=== PATIENT | male | born 1980 | race Caucasian/White ===

== ENCOUNTER 2021-05-07 05:50 | Emergency (ER) | payer BC ==
[2021-05-07 06:21] VITALS: BP 116/62; PULSE 110; RESP 16; TEMP 98.3
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
[2021-05-07] MEDS ORDERED: ACET/COD 300 MG/30 MG STARTER PACK 6 TAB BTL PO STA (07:01)
== END 2021-05-07 07:16 | disposition home or self-care (01) ==
LOC: EC 05:50
DX: S82.831A Other fracture of upper and lower end of right fibula, initial encounter for closed fracture (principal); S93.04XA Dislocation of right ankle joint, initial encounter; W01.0XXA Fall on same level from slipping, tripping and stumbling without subsequent striking against object, initial encounter
CPT/HCPCS: 99283

== ENCOUNTER 2021-05-08 22:46 | Observation (INO) | payer BC ==
--- NOTE | 2021-05-08 23:16 | XR ---
EXAMINATION TYPE: XR ankle complete RT DATE OF EXAM: 05/08/2021 COMPARISON: NONE HISTORY: Pain TECHNIQUE: 3 views FINDINGS: 3 views are obtained through the cast and there is oblique fracture distal fibula. There is lateral dislocation of the talus. There is displacement 13 mm laterally. The talus and calcaneus leelee ear intact. IMPRESSION: There is a lateral dislocation of the talus which is a change compared to exam yesterday.
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
[2021-05-09] MEDS ORDERED: PROPOFOL 10 MG/ML 20 ML VIAL IV STA (00:02)
[2021-05-09] MEDS ORDERED: SODIUM CHLORIDE 0.9% 500 ML 500 ML IV STA (00:02)
[2021-05-09] MEDS ORDERED: NALOXONE 0.4 MG/ML 1 ML VIAL IV PRN (00:03)
[2021-05-09] MEDS ORDERED: PROPOFOL 10 MG/ML 20 ML VIAL IV ONE (00:30)
--- NOTE | 2021-05-09 01:24 | XR ---
EXAMINATION TYPE: XR ankle limited RT DATE OF EXAM: 05/09/2021 COMPARISON: Today HISTORY: Postreduction TECHNIQUE: 2 views were obtained through the cast. FINDINGS: There is lateral displacement of the talus. Displacement is approximately 12 mm. There is oblique fr acture distal fibula. The talus and calcaneus appear intact. IMPRESSION: There is persistent significant lateral displacement of the talus and not significantly i mproved compared to the exam 2 hours ago.
[2021-05-09] MEDS: MORPHINE SULFATE 4 MG/ML SYRINGE IVP PRN ×2 (08:09→12:20)
[2021-05-09 08:24] VITALS: BP 115/68; PULSE 77; RESP 15; TEMP 98
[2021-05-09] MEDS ORDERED: LIDOCAINE 2% INJ 20 MG/ML (20 ML MDV) SQ STA (09:23)
[2021-05-09] MEDS: HYDROcodone/APAP 5-325MG 1 EACH TAB PO PRN ×2 (10:27→16:43)
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
--- NOTE | 2021-05-09 13:00 | XR ---
EXAMINATION TYPE: XR ankle limited RT DATE OF EXAM: 05/09/2021 COMPARISON: NONE HISTORY: Post reduction right ankle TECHNIQUE: 2 postreduction views of the right ankle COMPARISON: None. FINDINGS: There is persistent but improved disruption of the ankle mortise. Medial tibiotalar joint s pace widening is at 7 mm versus 13 mm previously. Slight improvement in displacement of distal fibula r fracture. IMPRESSION: As above
--- NOTE | 2021-05-09 13:07 | P.DS ---
Providers Date of admission: 05/09/21 00:03 Expected date of discharge: 05/09/21 Attending physician: Chaz Hanna Primary care physician: Stated None - Discharge Diagnosis(es) (1) Closed fracture of right distal fibula Current Visit: Yes Status: Acute (2) Dislocation of right ankle joint Current Visit: Yes Status: Acute Hospital Course: This is a 40-year-old male who had an initial injury of the right ankle when he slipped on some ice on 05/07/2021. He was seen in the emergency department and had a reduction of his fracture dislocation of the ankle. He was placed in a short leg splint. He returned to the emergency department last evening with complaint of increased pain and the feeling that the "bones were moving". He was admitted for pain management and further evaluation with orthopedics. The ankle was reduced on the floor by myself using 10 mL of lidocaine as an ankle block. Postreduction films showed improved position. The patient may be discharged to home with follow-up on with Dr. Hanna to discuss surgical plan. Patient Condition at Discharge: Stable Plan - Discharge Summary New Discharge Prescriptions: New HYDROcodone/APAP 7.5-325MG [[place] 7.5-325] 1 - 2 tab PO Q6HR PRN #32 tab PRN Reason: Pain Discharge Medication List HYDROcodone/APAP 7.5-325MG [[place]ou[place] 7.5-325] 1 - 2 tab PO Q6HR PRN #32 tab 05/09/21 [Rx] Follow up Appointment(s)/Referral(s): None,Stated [Primary Care Provider] - 1-2 days Chaz Hanna MD [STAFF PHYSICIAN] - 3 Days Activity/Diet/Wound Care/Special Instructions: Strict nonweightbearing right lower extremity with crutches. Strict elevation. Patient should be supine with leg elevated unless up to the bathroom. Follow-up on , 05/12/[address] Hanna. Discharge Disposition: HOME SELF-CARE
== END 2021-05-09 17:13 | disposition home or self-care (01) ==
LOC: EC 22:46 → 6NMEDSUR 05-09 00:03
PROVIDERS: ADMIT Orthopaedic Surgery; ATTEND Orthopaedic Surgery
DX: S93.04XA Dislocation of right ankle joint, initial encounter (principal); S82.831A Other fracture of upper and lower end of right fibula, initial encounter for closed fracture; W01.0XXA Fall on same level from slipping, tripping and stumbling without subsequent striking against object, initial encounter
CPT/HCPCS: 28435; 99284; 96376; 96374; 73600; 73610; G0378; J2270; J2704

== ENCOUNTER 2021-05-13 12:14 | Day surgery (SDC) | payer BC ==
[2021-05-12 12:19] VITALS: BMI 26.7
[~2021-05-13 12:14] MED LIST: DEXAMETHASONE SOD PHOSPHATE 4 MG/ML 1 ML VIAL IV ONE; HYDROmorphone 0.5 MG/0.5 ML SYRINGE IVP PRN; LACTATED RINGERS 1,000 ML IV SCH; MIDAZOLAM 2 MG/2 ML VIAL IV PRN; ONDANSETRON 4 MG/2 ML VIAL IVP ONE; SCOPOLAMINE 1.5MG/72HR PATCH TRANSDERM ONE
[2021-05-13] MEDS ORDERED: MIDAZOLAM 2 MG/2 ML VIAL IVP ONE (13:31)
[2021-05-13] MEDS ORDERED: fentaNYL (PF) 50 MCG/ML 2 ML AMP IVP ONE (13:32)
--- NOTE | 2021-05-13 13:53 | P.ANPRN ---
Procedure Note - Anesthesia - Nerve Block Performed Right Adductor Canal Single Time Out Performed: Yes (1331) Date of Procedure: 05/13/21 Procedure Start Time: 13:36 Procedure Stop Time: 13:39 Location of Patient: PreOp Indication: Acute Post-Operative Pain, Requested by Surgeon Specifically requested for management of pain by DrDelphine: Chaz Hanna Sedation Type: Sedate with meaningful contact maintained Preparation: Sterile Prep Position: Supine Catheter: None Needle Types: Pajunk Needle Gauge: 21 Ultrasound used to visualize needle placement: Yes Ultrasound used to observe medication spread: Yes Injectate: 0.5% Ropivacaine (see comment for volume) (15cc + 15cc nacl) Blood Aspirated: No Pain Paresthesia on Injection Noted: No Resistance on Injection: Normal Image Stored and Saved: Yes Events: Uneventful and Well Tolerated
--- NOTE | 2021-05-13 13:53 | P.ANPRN ---
Procedure Note - Anesthesia - Nerve Block Performed Right Popliteal Single Time Out Performed: Yes (1331) Date of Procedure: 05/13/21 Procedure Start Time: 13:32 Procedure Stop Time: 13:35 Location of Patient: PreOp Indication: Acute Post-Operative Pain, Requested by Surgeon Specifically requested for management of pain by DrDelphine: Chaz Hanna Sedation Type: Sedate with meaningful contact maintained Preparation: Sterile Prep Position: Left Lateral Catheter: None Needle Types: Pajunk Needle Gauge: 21 Ultrasound used to visualize needle placement: Yes Ultrasound used to observe medication spread: Yes Injectate: 0.5% Ropivacaine (see comment for volume) (15cc + 15cc nacl) Blood Aspirated: No Pain Paresthesia on Injection Noted: No Resistance on Injection: Normal Image Stored and Saved: Yes Events: Uneventful and Well Tolerated
[2021-05-13] MEDS ORDERED: ROPIVACAINE 5 MG/ML 30 ML VIAL ONE (13:54)
[2021-05-13] MEDS ORDERED: MIDAZOLAM 2 MG/2 ML VIAL ONE (13:54)
[2021-05-13] MEDS ORDERED: PROPOFOL 10 MG/ML 20 ML VIAL IV ONE (13:54)
[2021-05-13] MEDS ORDERED: SODIUM CHLORIDE 0.9% (PF) 10 ML VIAL ONE (13:54)
[2021-05-13] MEDS ORDERED: fentaNYL (PF) 50 MCG/ML 2 ML AMP ONE (13:54)
[2021-05-13] MEDS ORDERED: LIDOCAINE 1% INJ 10MG/ML (20 ML MDV) ONE (13:54)
[2021-05-13 14:40] VITALS: RESP 16; TEMP 97.2
--- NOTE | 2021-05-13 14:47 | FL ---
EXAMINATION TYPE: FL guidance operating room, XR ankle limited RT DATE OF EXAM: 05/13/2021 CLINICAL HISTORY: Right ankle fracture. TECHNIQUE: Fluoroscopy. Intraoperative 2 views right ankle. COMPARISON: Prior right ankle xray 4 days ago.. FINDINGS: Fluoroscopic guidance was provided during open reduction and internal fixation procedure p erformed by Dr. Hanna. A total of 18 seconds of fluoroscopic time was utilized during the procedure and 2 spot images intraoperative images are acquired. Images acquired show surrounding splint type material. There is some improved alignment at level of a nkle mortise after reduction. Persistent lateral malleolar fracture with posterior displacement is se en on lateral image. No metallic fixating hardware on images saved. IMPRESSION: As Above.
[2021-05-13 15:05] VITALS: BP 111/73
[2021-05-13 15:16] VITALS: PULSE 67
--- NOTE | 2021-05-20 14:08 | P.OP ---
Date of Procedure: 05/13/21 Procedure(s) Performed: DIAGNOSIS: Right ankle fracture-dislocation PROCEDURE: Right ankle closed reduction and splinting COMPLICATIONS: none INDICATIONS: Cedric is a 40-year-old male with a history of falling and sustaining a displaced right ankle fracture-dislocation. Initial x-rays showed a fracture involving the distal fibula with a lateral posterior dislocation. Several reduction attempts have been performed but the fracture is very unstable. Most recent x-rays showed continued lateral displacement of the talus relative to the tibia. I have spoken to the patient regarding closed reduction and splinting of this fracture with the likely further procedure of open reduction and internal fixation to be delayed until swelling is significantly improved. I have discussed risks of the procedure is being inclusive of but not limited to: Failure to obtain a satisfactory reduction, pressure sores, compartment syndrome, neurovascular compromise, late subluxation/redislocation of the ankle joint, and other risks. The patient is aware these risks and wishes to proceed with closed reduction and splinting. PROCEDURE: Under regional block plus IV sedation, the patient's right ankle was carefully reduced using modified Kathy maneuver and placed into a well-padded well molded posterior splint with a medial lateral stirrup. Plaster was used for the formation of the splint. Postreduction x-rays were taken and showed anatomic reduction of the mortise. The patient tolerated the procedure well and was given instructions for home activity with the use of crutches, nonweightbearing, icing program and strict elevation during rest. Plan is for definitive fixation once swelling is under control.
== END 2021-05-13 15:35 | disposition home or self-care (01) ==
LOC: OR 12:14
PROVIDERS: ATTEND Orthopaedic Surgery
DX: S82.831A Other fracture of upper and lower end of right fibula, initial encounter for closed fracture (principal); S82.301A Unspecified fracture of lower end of right tibia, initial encounter for closed fracture; W19.XXXA Unspecified fall, initial encounter
CPT/HCPCS: 64447; 64445; 76942; 73600; 27810; J2250; J1100; J0690; J2405; J2001; J3010; J2795; J2704

== ENCOUNTER 2021-05-20 10:26 | Day surgery (SDC) | payer BC ==
[2021-05-19 13:18] VITALS: BMI 27.7
[~2021-05-20 10:26] MED LIST changes: +LIDOCAINE 1% (10MG/ML) FOR IV START INTRADERMA PRN; -SCOPOLAMINE 1.5MG/72HR PATCH TRANSDERM ONE
[2021-05-20] MEDS ORDERED: MIDAZOLAM 2 MG/2 ML VIAL IVP ONE (11:17)
[2021-05-20] MEDS ORDERED: diphenhydrAMINE 50 MG/ML 1 ML VIAL ONE (11:31)
[2021-05-20] MEDS ORDERED: diphenhydrAMINE 50 MG/ML 1 ML VIAL IVP ONE (11:35)
[2021-05-20] MEDS ORDERED: PROPOFOL 10 MG/ML 20 ML VIAL IV ONE (12:15)
[2021-05-20] MEDS ORDERED: HYDROmorphone (PF) 1 MG/ML ONE (12:15)
[2021-05-20] MEDS ORDERED: fentaNYL (PF) 50 MCG/ML 2 ML AMP ONE (12:15)
[2021-05-20] MEDS ORDERED: LIDOCAINE 1% INJ 10MG/ML (20 ML MDV) ONE (12:15)
[2021-05-20] MEDS ORDERED: ROPIVACAINE 5 MG/ML 30 ML VIAL ONE (12:15)
[2021-05-20] MEDS ORDERED: DEXAMETHASONE SOD PHOSPHATE 4 MG/ML 1 ML VIAL ONE (12:15)
[2021-05-20] MEDS ORDERED: ceFAZolin 1,000 MG in SODIUM CHLORIDE 0.9% 1,000 ML IRRIGATION ONE ×4 (13:02)
[2021-05-20] MEDS ORDERED: LACTATED RINGERS 1,000 ML IV ONE (13:46)
--- NOTE | 2021-05-20 14:18 | P.OP ---
Date of Procedure: 05/20/21 Procedure(s) Performed: right ankle ORIF distal fibula [facility] Suly General plus regional PREOPERATIVE DIAGNOSES: 1. Right ankle distal fibula fracture, Long C bimalleolar-equivalent fracture 2. Ankle mortise instability with initial injury posterior lateral dislocation 2. Right ankle syndesmosis disruption, distal tibio-fibular joint POSTOPERATIVE DIAGNOSES: 1. Right ankle lateral malleolus fracture, displaced 2. Right ankle syndesmosis disruption, disal tibio-fibular joint PROCEDURES PERFORMED: 1. Right ankle lateral malleolus fracture open reduction and internal fixation. 2. Right ankle reduction and fixation of syndesmosis disruption with [employer] Tightrope system ANESTHESIA: General plus regional block [employer]NAGER: Suly Bishop PA-C (assistance with exposure, hemostasis, retraction, fixation, closure, dressing, splint) COMPLICATIONS: None ESTIMATED BLOOD LOSS: Less than 10 mL. TOURNIQUET: approximately 70 minutes DISPOSITION: To post-anesthesia care unit INDICATIONS: Cedric is a 40-year-old male, who presents to the operating room today for fixation of right ankle fracture. The fracture is a Long C, with a fracture of the lateral malleolus that is high enough to produce tibial talar instability. The medial malleolus is not fractured. There does appear to be some degree of syndesmotic disruption which I plan to fix with [employer] Tightrope(s). I have discussed these issues with the patient, who wishes to proceed with the operative plan. I have explained the details of this surgery thoroughly and also explained the potential risks and complications. These are inclusive of, but not limited to: bleeding, infection, scarring, discomfort, blood vessel and nerve damage, stiffness, weakness, need for further surgery, failure to relieve symptoms, persistence or worsening of problems, , and other risks. The patient is aware of these risks, and agrees to proceed with surgery. The consent form has been signed. PROCEDURE: After appropriate consent was obtained, the patient was taken to the operating room and placed supine on the operating table. General anesthesia was initiated. The ankle was removed from the splint and examined for any signs of significant fracture blisters or swelling that would prevent continuation of the surgery. Skin appeared healthy and intact, swellling was moderate but not excessive. The limb was prepped and draped in the usual aseptic fashion with ChloraPrep, and the patient was given IV antibiotics. The tourniquet was then inflated to 300 mmHg after careful exsanguination of the limb. Time out was called, confirming patient identity, side, procedure, and administration of antibiotics. Incision was created laterally, centered over the fracture site, for a length of approximately 6 inches. The incision was carried down through skin and into subcutaneous tissues, and blunt dissection then proceeded down to fascia. Fascia was split in line with the incision and the peroneal muscles were retracted posteriorly. The fracture site was exposed with subperiosteal dissection for as much exposure of the bone as was necessary. Fracture hematoma was evacuated and the interior of the fracture site was meticulously cleansed with irrigation and manual extraction of organizing hematoma and bone debris. The fracture was minimally comminuted and oblique in orientation. The fracture was mobilized using a banegas elevator and reduction was accomplished using a bone clamp, which was also used to secure the fracture. Anatomic reduction was accomplished. An interfragmentary screw was placed from anterior to posterior across the fracture site. This screw secured provisional fixation. Next, a recon fibular plate from [employer] was selected for size and side. It was minimally contoured to match the contour of the posterior lateral fibula. The proximal holes were filled with fully threaded 3.5 mm cortical screws. Distal holes were filled with 2.7 mm cortical nonlocking screws. A tightrope was then placed through the bottom screw hole of the lateral plate, guided with C-arm imaging. The syndesmosis was held in a reduced position with manual pressure. A clamp was not used. The syndesmosis was held together and the tight rope was then deployed and tightened. Prior to cutting the sutures, the ankle was taken through range of motion and stress testing under C-arm imaging which showed excellent reduction of both the syndesmosis and the talus. The talus was stable to external rotation force as well as lateral shuck testing and extremes of flexion and extension. Screw lengths were noted to be appropriate and the incision was then irrigated thoroughly using normal saline. Tourniquet was deflated and hemostasis was obtained using electrocautery. Fascial closure was performed with 0-Vicryl suture, subcutaneous closure with 2- 0 Vicryl suture. Skin was closed with 3-0 Monocryl and cyanoacrylate dressing. Sterile dressing was applied and well padded, well molded short leg splint was applied with the ankle in neutral. Patient tolerated the procedure well and taken to recovery room in stable condition. Sponge and needle counts were correct.Patient tolerated the procedure well and taken to recovery room in stable condition. Sponge and needle counts were correct.
[2021-05-20 14:36] VITALS: TEMP 97.8
--- NOTE | 2021-05-20 14:36 | FL ---
EXAMINATION TYPE: FL guidance operating room, XR ankle complete RT DATE OF EXAM: 05/20/2021 CLINICAL HISTORY: Right ankle fracture. TECHNIQUE: Fluoroscopy. Intraoperative 3 views right ankle. COMPARISON: None. Right ankle x-ray one week ago. FINDINGS: Fluoroscopic guidance was provided during open reduction and internal fixation procedure p erformed by Dr. Hanna. A total of 40 seconds of fluoroscopic time was utilized during the procedure and 4 spot images was acquired. Intraoperative images obtained show placement of a lateral fixating plate and additional screw throug h comminuted displaced lateral malleolus fracture. There is radiolucent screw extending through the d istal tibia. Satisfactory alignment is seen on intraoperative images obtained. IMPRESSION: As Above.
[2021-05-20 15:30] VITALS: RESP 16
[2021-05-20] MEDS ORDERED: HYDROcodone/APAP 7.5-325MG 1 EACH TAB ONE (15:51)
[2021-05-20] MEDS ORDERED: HYDROcodone/APAP 7.5-325MG 1 EACH TAB PO ONE (15:53)
[2021-05-20 16:18] VITALS: BP 120/78; PULSE 74
--- NOTE | 2021-05-22 20:28 | P.ANPRN ---
Procedure Note - Anesthesia - Nerve Block Performed Right Popliteal Single Time Out Performed: Yes Date of Procedure: 05/20/21 Procedure Start Time: :16 Procedure Stop Time: Location of Patient: PreOp Indication: Acute Post-Operative Pain, Requested by Surgeon Sedation Type: Sedate with meaningful contact maintained Preparation: Sterile Prep Position: Left Lateral Needle Types: Pajunk Needle Gauge: 21 Ultrasound used to visualize needle placement: Yes Ultrasound used to observe medication spread: Yes Blood Aspirated: No Pain Paresthesia on Injection Noted: No Resistance on Injection: Normal Image Stored and Saved: Yes Events: Uneventful and Well Tolerated (Ropivacaine 0.5% 25 mL plus dexamethasone 4 mg)
== END 2021-05-20 16:20 | disposition home or self-care (01) ==
LOC: OR 10:26
PROVIDERS: ATTEND Orthopaedic Surgery
DX: S82.841A Displaced bimalleolar fracture of right lower leg, initial encounter for closed fracture (principal); S93.431A Sprain of tibiofibular ligament of right ankle, initial encounter; M25.371 Other instability, right ankle; W00.0XXA Fall on same level due to ice and snow, initial encounter; Z98.890 Other specified postprocedural states
CPT/HCPCS: 64445; 76942; 73610; 27792; 27829; C1713; J2250; J1200; J1100; J0690 ×2; J2405; J2001; J3010; J1170; J2795; J2704